=== PATIENT | male | born 1945 | race Caucasian/White ===

== ENCOUNTER 2018-03-11 05:18 | Emergency (ER) | payer MEDICARE, BC ==
[~2018-03-11] VITALS: Ht 182.9 cm; Wt 90.7 kg
[~2018-03-11 05:18] MED LIST: ASPIR 8181 MG PO; ATORVASTATIN CA10 MG PO; CARVEDILOL25 MG PO; CITALOPRAM HBR40 MG PO; COLACE100 MG PO; DIOVAN160 MG PO; MELATONIN3 MG PO; NORVASC10 MG PO
[2018-03-11 06:10] LABS: BASOPHILS # (AUTO) 0.1 (0.0-0.1); BASOPHILS % 0.8 % (0.0-1.0); EOSINOPHILS # (AUTO) 0.5 (0.0-0.4); HEMATOCRIT 44.5 % (38.2-49.6); HEMOGLOBIN 14.7 g/dL (14.0-18.0); LYMPHOCYTES # (AUTO) 1.9 (1.0-3.2); MEAN CORPUSCULAR HEMOGLOBIN 29.8 pg (28-32); MEAN CORPUSCULAR VOLUME 90.1 fL (81-99); MONOCYTES # (AUTO) 0.6 (0.2-0.8); MONOCYTES % 6.1 % (4.4-11.3); NEUTROPHILS % 66.9 % (38.7-80.0); PLATELET COUNT 283 x10e3/uL (140-360); RED BLOOD COUNT 4.94 x10e6/uL (4.3-5.7); RED CELL DISTRIBUTION WIDTH 12.8 % (11.7-14.4)
[2018-03-11 06:26] LABS: ALANINE AMINOTRANSFERASE 11 IU/L (0-55); ALBUMIN/GLOBULIN RATIO 0.9 (0.8-2.0); ALKALINE PHOSPHATASE 80 IU/L (40-150); ANION GAP 14.6 mmol/L (8-16); BLOOD UREA NITROGEN 20 mg/dL (7-26); BUN/CREATININE RATIO 19 (6-25); CALCIUM 8.9 mg/dL (8.4-10.2); CARBON DIOXIDE 25 mmol/L (22-29); CHLORIDE 109 mmol/L (98-107); CREATININE, SERUM 1.03 mg/dL (0.72-1.25); EST GLOMERULAR FILTRATION RATE > 60 ML/MIN (60-); GLUCOSE 150 mg/dL (74-118); POTASSIUM 4.6 mmol/L (3.5-5.1); SODIUM 144 mmol/L (136-145)
[2018-03-11 06:39] LABS: CREATINE KINASE 41 IU/L (30-200); LIPASE 19 U/L (8-78)
--- NOTE | 2018-03-11 06:51 | Diagnostic Imaging Report ---
CHEST SINGLE (PORTABLE), 03/11/2018 5:59 AM Technique: CHEST SINGLE (PORTABLE) Comparison: None available. Clinical history: Shortness of breath Findings: See Impression Impression: Limited by portable technique and soft tissue attenuation. The patient chin overlies the lung apices. 1. Enlarged cardiomediastinal silhouette, poorly assessed due to technique and low volumes. Recommend follow-up upright PA and lateral. 2. Low lung volumes and elevated hemidiaphragms result in bibasilar atelectasis. 3. No large effusion. No pneumothorax. Signed by: Dr Danni Franklin MD on 03/11/2018 6:48 AM
[2018-03-11] MEDS ORDERED: LEXAPRO10 MG PO (07:06)
[2018-03-11] MEDS ORDERED: POTASSIUM CHLO10 ME1 PO (07:06)
[2018-03-11] MEDS ORDERED: HYDROXYZINE HCL25 MG PO (07:06)
[2018-03-11] MEDS ORDERED: FLUCONAZOLE100 MG PO (07:06)
[2018-03-11] MEDS ORDERED: ASPIRIN325 MG PO (07:06)
[2018-03-11] MEDS ORDERED: VITAMIN D250000 UNIT PO (07:06)
[2018-03-11] MEDS ORDERED: LOSARTAN POTASS25 MG PO (07:06)
[2018-03-11] MEDS ORDERED: LORATADINE10 MG PO (07:09)
[2018-03-11] MEDS ORDERED: NYSTATIN100000 UNI TOP (07:09)
[2018-03-11] MEDS ORDERED: ZEASORB AF TOP (07:12)
[2018-03-11 07:50] LABS: CLARITY,URINE CLEAR (CLEAR); COLOR,URINE YELLOW (YELLOW); LEUKOCYTE ESTERASE ,URINE NEGATIVE (NEGATIVE); NITRITE,URINE NEGATIVE (NEGATIVE)
[2018-03-11 07:51] LABS: BILIRUBIN,URINE NEGATIVE (NEGATIVE); KETONES,URINE NEGATIVE (NEGATIVE); PROTEIN,URINE DIPSTICK NEGATIVE (NEGATIVE); URINE UROBILINOGEN 1 mg/dL (0.2 - 1)
[2018-03-11 08:22] LABS: MUCUS,URINE FEW (RARE); WBC,URINE (MAN) 0-5 /HPF (0-5)
[2018-03-11 09:49] VITALS: BP 112/74
--- NOTE | 2018-03-11 09:55 | Diagnostic Imaging Report ---
PROCEDURE: CT ABDOMEN AND PELVIS WITH CONTRAST TECHNIQUE: The abdomen and pelvis were scanned utilizing a multidetector helical scanner from the diaphragm to the lesser trochanter after the IV administration of 100 cc of Isovue 370. Coronal and sagittal multiplanar reformations were obtained. COMPARISON: None. INDICATIONS: GENERALIZED ABDOMINAL PAIN, WITH DIARRHEA FINDINGS: LOWER THORAX: Trace subsegmental atelectasis in the dependent lower lobes.. HEPATOBILIARY: No focal hepatic lesions. No biliary ductal dilatation. SPLEEN: Calcified granulomata. No splenomegaly. PANCREAS: No focal masses or ductal dilatation. ADRENALS: 2.7 cm left adrenal nodule average internal attenuation 65 Hounsfield units. No right adrenal nodule. KIDNEYS/URETERS: Subcentimeter hypoattenuating lesion in the medial aspect of the left kidney too small to further characterize but likely representing a small cyst. No additional focal renal lesions. No hydronephrosis. No calculi. PELVIC ORGANS/BLADDER: Urinary bladder is incompletely distended but otherwise unremarkable. PERITONEUM / RETROPERITONEUM: No ascites. No pneumoperitoneum. LYMPH NODES: No pelvic sidewall, retroperitoneal, or mesenteric lymphadenopathy. VESSELS: The infrarenal abdominal aortic aneurysm measures 3.9 cm in maximum diameter with associated mural thrombus. Atherosclerotic vascular disease elsewhere throughout the arterial system. Portal vein, splenic vein, and central superior mesenteric vein are patent. GI TRACT: The rectum is markedly distended with stool. The sigmoid colon is notable for scattered diverticula without wall thickening or adjacent inflammatory change. The appendix is normal. The stomach is collapsed with prominence of the rugal folds. There is no small bowel dilatation to suggest obstruction. BONES AND SOFT TISSUES: No focal soft tissue abnormalities. Diffuse osteopenia. Multilevel degenerative disc changes of the lumbar spine.. IMPRESSION: Massive rectal distention with stool, concerning for impaction. No pneumoperitoneum. Sigmoid diverticulosis without findings of diverticulitis. Left adrenal nodule is indeterminate and should be definitively characterized with CT or MRI of the abdomen (adrenal mass protocol) on a nonemergent basis. Infrarenal abdominal aortic aneurysm measuring 3.9 cm in maximum diameter. Dictated by: Rogelio Lucas M.D. on 03/11/2018 at 7:58 Electronically approved by: Rogelio Lucas M.D. on 03/11/2018 at 7:58
[2018-03-11] MEDS ORDERED: SODIUM CHLORIDE 0.9% 50ML 50 ML ONE (10:39)
[2018-03-11] MEDS ORDERED: IOPAMIDOL 370 MG/ML 200 ML INFUS..BTL INJ ONE (10:39)
== END 2018-03-11 10:30 | disposition home or self-care (01) ==
LOC: ER 05:18
DX: R10.33 Periumbilical pain (principal); K59.00 Constipation, unspecified; I71.4 Abdominal aortic aneurysm, without rupture
CPT/HCPCS: 36415; 71045; 74177; 80053; 81001; 82550; 82553; 83690; 84484; 85025; 93005; 99284; Q9967